=== PATIENT | female | born 1975 | race Caucasian/White ===

== ENCOUNTER 2019-05-30 17:45 | Emergency (ER) | payer MEDICAID, SELFPAY ==
[2019-05-30 17:46] VITALS: BP 140/93; PULSE 68; RESP 16; TEMP 36.6; O2SAT 99; BMI 33.2
--- NOTE | 2019-05-30 19:27 | ED.VIS.UPPEX ---
History of Present Illness Chief Complaint: Laceration Informant: Patient Occurred: Hours - 1 Mechanism/Context: Incised Context: Sudden Onset - Accidentally after she picked up something glass in a store and it broke, cutting her left middle finger Timing: Continuous Quality of Pain: - - Sore Location: Tip of left middle finger Current Severity: Mild Maximum Severity: Moderate Worsened by: Nothing Relieved by: Holding pressure stop the bleeding Associated Symptoms: Negative for: Parasthesia, Weakness, Loss of Funtion Narrative: [id number]. History of A. fib, on no anticoagulants. Tetanus Immunization: >10 years - Past Medical History (1) Atrial fibrillation Status: Chronic (2) Hypertension Status: Chronic Past Medical History - Allergies and Home Meds Allergies/Adverse Reactions: Allergies No Known Allergies Allergy (Verified 05/30/19 17:46) Primary Care Physician: [facility] Doctor,Out of [NON-STAFF] - Lives: Spouse/ Significant Other Smoking Status: Never smoker Review of Systems Musculoskeletal: Reports: Extremity Pain. Denies: Swelling Skin: Reports: Wounds. Denies: Rash Neurological: Denies: Weakness, Numbness Physical Exam Vital Signs/Narrative: Vital Signs Temp Pulse Resp BP Pulse Ox 05/30/19 17:46 97.8 F 68 16 140/93 H 99 General: Well nourished, Well developed Extremeties: No significant tenderness to the left middle finger, FDS, FDP, extensor intact. No nail damage. No subungual hematoma. Skin: Trauma - 0.5 cm partial-thickness laceration without any active bleeding, tenderness, tip of left middle finger. No active bleeding. Wound is sealed shut, clotted. Neurological: Alert, Oriented x3, Cranial nerves II-XII grossly intact, Normal Strength, Normal Sensation, Normal Gait Psychological: Normal affect, Normal Mood Diagnostic/Tx/Re-eval - Medical Decision Making Very small laceration with controlled bleeding, does not require sutures. However patient uses her hands a lot and asks if we can glue it rather than her continuing the bandage yet. I discussed the limitations of Dermabond on the hand/fingers. She understands the limitations and wants it anyway which I think is reasonable. This was performed and her tetanus was updated. Procedures - Lacerations Left middle finger Length: 0.5 cm Depth: Skin Shape: Linear Prep: Sterile Conditions, Chlorhexadine Laceration repair: Dermabond Comment: No complications. Tolerated well. ED Disposition - Plan for ED Patient: Disposition: Home or Assisted Living Diagnosis: Laceration of left middle finger w/o foreign body w/o damage to nail, Immunization, tetanus-diphtheria Instructions: LACERATION, Hand, Vaccines: Td and Tdap (Adult) Referrals: [facility] Doctor,Out of [NON-STAFF] - As Needed
[2019-05-30] MEDS: Diphth,Pertuss(Acell),Tet Vac 0.5 ML Vial IM (19:55)
--- NOTE | 2019-05-30 20:13 | EKG12_ITS ---
Test Reason : CP Blood Pressure : / mmHG Vent. Rate : 065 BPM Atrial Rate : 065 BPM P-R Int : 160 ms QRS Dur : 078 ms QT Int : 420 ms P-R-T Axes : 058 036 028 degrees QTc Int : 436 ms Normal sinus rhythm Normal ECG Confirmed by JENNA DUNN ([id number]), graphics editor TAMANNA STUART ([id number]) on 06/04/2019 9:20:30 AM Referred By: BB Confirmed By:JENNA DUNN
--- NOTE | 2019-05-30 20:14 | ED.RN ---
no old ekgs on file
== END 2019-05-30 20:45 | disposition home or self-care (01) ==
PROVIDERS: Emergency Provider Emergency Medicine
DX: S61.213A Laceration without foreign body of left middle finger without damage to nail, initial encounter (principal); W25.XXXA Contact with sharp glass, initial encounter; Y93.9 Activity, unspecified; Y92.512 Supermarket, store or market as the place of occurrence of the external cause; Y99.9 Unspecified external cause status; Z23 Encounter for immunization; R07.89 Other chest pain; I10 Essential (primary) hypertension; I48.91 Unspecified atrial fibrillation; Z79.899 Other long term (current) drug therapy
CPT/HCPCS: 12001; 90471; 90715; 93005; 99282